=== PATIENT | male | born 1990 | race Caucasian/White ===

== ENCOUNTER 2021-03-29 08:48 | Day surgery (SDC) | payer MEDICAID, SELFPAY ==
[~2021-03-29] VITALS: Ht 188 cm; Wt 88.5 kg
[2021-03-29] MEDS ORDERED: MIDAZOLAM HCL 5 MG/5 ML VIAL ONE (11:35)
[2021-03-29] MEDS ORDERED: DIPHENHYDRAMINE INJ 50 MG/ML VIAL ONE (11:36)
[2021-03-29 14:06] VITALS: BP_SYST 122
== END 2021-03-29 11:43 | disposition home or self-care (01) ==
LOC: SDS 08:48 → SMU 08:50 → SDS 11:43
PROVIDERS: ATTEND Internal Medicine
DX: M51.16 Intervertebral disc disorders with radiculopathy, lumbar region (principal)
CPT/HCPCS: 36415; 62323; 87426; J1200; J2250; 76000